=== PATIENT | male | born 1990 | race Caucasian/White ===

== ENCOUNTER 2017-10-02 11:06 | Emergency (ER) | payer MEDICAID, OTHER ==
[~2017-10-02] VITALS: Ht 182.9 cm; Wt 97.5 kg
[2017-10-02] MEDS ORDERED: IBUPROFEN 600MG TABLET PO ONE (14:00)
[2017-10-02 14:23] VITALS: BP 119/71
== END 2017-10-02 15:06 | disposition home or self-care (01) ==
LOC: ER 11:06
DX: S22.31XA Fracture of one rib, right side, initial encounter for closed fracture (principal); W11.XXXA Fall on and from ladder, initial encounter; Y93.89 Activity, other specified; Y92.098 Other place in other non-institutional residence as the place of occurrence of the external cause; R03.0 Elevated blood-pressure reading, without diagnosis of hypertension; Z87.828 Personal history of other (healed) physical injury and trauma
CPT/HCPCS: 71010; 99283

== ENCOUNTER 2023-04-20 08:46 | Emergency (ER) | payer MEDICAID ==
[~2023-04-20] VITALS: Ht 182.9 cm; Wt 106.0 kg
[2023-04-20 09:18] VITALS: BP 132/85; PULSE 81; RESP 18; TEMP 98
[2023-04-20] MEDS ORDERED: TETANUS, DIPHTHERIA, PERTUSSIS VAC/PF 0.5ML (>10YR OLD) IM ONE (11:15)
== END 2023-04-20 12:06 | disposition home or self-care (01) ==
LOC: ER 08:46
DX: S51.812A Laceration without foreign body of left forearm, initial encounter (principal); G89.11 Acute pain due to trauma; W45.8XXA Other foreign body or object entering through skin, initial encounter; Y93.89 Activity, other specified; Y92.89 Other specified places as the place of occurrence of the external cause; Y99.8 Other external cause status
CPT/HCPCS: 90715; 90471; 99283; Z7610 ×3